=== PATIENT | female | born 1935 | race Caucasian/White ===

== ENCOUNTER 2021-08-16 23:00 | Inpatient (IN) | payer MEDICARE ==
[2021-08-16] MEDS ORDERED: Acetaminophen 650 MG Suppository ONE (23:33)
[2021-08-16 23:37] LABS: Hemoglobin 11.7 g/dL (12.0-16.0); Mean Corpuscular HGB CONC 33.5 g/dL (32.0-36.0); Mean Corpuscular Hemoglobin 31.7 pg (27.0-31.0); Mean Corpuscular Volume 94.5 fL (78.0-98.0); RBC Distribution Width 12.7 % (11.5-14.5); Red Blood Cell (RBC) Count 3.69 mill/uL (4.20-5.40); White Blood Cell (WBC) Count 3.8 thou/uL (4.8-10.8)
[2021-08-16 23:43] LABS: ALT (SGPT) 82 U/L (8-55); AST (SGOT) 101 U/L (5-34); Albumin 2.6 g/dL (3.4-4.8); Alkaline Phosphatase 141 U/L (40-110); Anion Gap 18 mmol/L (10-20); BUN (Urea Nitrogen) 46 mg/dL (9.8-20.1); Bilirubin, Total 1.2 mg/dL (0.2-1.2); Calc. Creatinine Clearance 0 mL/min (70-130); Calcium 8.8 mg/dL (7.8-10.44); Carbon Dioxide 22 mmol/L (23-31); Chloride 99 mmol/L (98-107); Globulin 3.4 g/dL (2.4-3.5); Glucose 100 mg/dL (83-110); Magnesium 2.1 mg/dL (1.6-2.6); Potassium 3.6 mmol/L (3.5-5.1); Sodium 135 mmol/L (136-145)
[2021-08-16] MEDS ORDERED: Aspirin 300 MG Suppository ONE (23:50)
[2021-08-16 23:57] LABS: #Lymphocytes 0.6 thou/uL (1.20-3.40); #Monocytes 0.1 thou/uL (0.11-0.59); #Neutrophils 3.1 thou/uL (1.40-6.50); %Eosinophils 0.2 % (0.0-10.0); %Lymphocytes 16.6 % (21.0-51.0); %Monocytes 2.3 % (0.0-10.0); %Neutrophils 80.9 % (42.0-75.0); Burr Cells SLIGHT = 2-5 cells (100X) (0-1/hpf); Elliptocytes MODERATE= 6-15 cells (100X) (0-1/hpf); Large Platelets SLIGHT; MDiff Complete? YES; Mean Platelet Volume 8.3 fL (7.4-10.4); Platelet Count 184 thou/uL (130-400); Platelet Morphology Comment Appears Adequate; Polychromasia SLIGHT = 2-3 cells (100X) (0-2/hpf); Tear Drops SLIGHT = 2-5 cells (100X) (0-1/hpf)
[2021-08-17 00:06] LABS: CKMB 4.9 ng/mL (0-6.6)
[2021-08-17] MEDS ORDERED: Aztreonam 1 GM in Sodium Chloride 0.9% 100 ML IVPB SCH (00:30)
[2021-08-17 00:35] LABS: SARS-CoV-2 NAA Rapid Test Not Detected (NotDetected)
[2021-08-17 00:49] LABS: Bilirubin Negative (Negative); Blood, Urine 3+ (Negative); Clarity Extra Turbid (Clear); Glucose, Urine (Dipstick) Normal (Negative); Ketone, Urine Negative (Negative); Leukocyte Negative Leu/uL (Negative); Nitrite Negative (Negative); Protein, Urine (Dipstick) 100 mg/dL (Neg-Trace); RBC/HPF None Seen HPF (0-3); Specific Gravity, Urine 1.019 (1.002-1.036); Squamous Epithelial 0-3 HPF (0-3); Urobilinogen Normal mg/dL (Less than 2); pH, Urine 5.5 (5.0-9.0)
[2021-08-17] MEDS ORDERED: Ondansetron ODT 4 MG TAB SL PRN (01:00)
[2021-08-17] MEDS ORDERED: Ondansetron PF 4 MG/2 ML Vial IVP PRN (01:00)
[2021-08-17 01:08] LABS: Bacteria/HPF 3+ HPF (None Seen)
[2021-08-17] MEDS ORDERED: Lorazepam 2 MG/ML VIAL ONE (01:44)
[2021-08-17] MEDS ORDERED: Bisacodyl 10 MG SUPP PR PRN (01:46)
[2021-08-17] MEDS ORDERED: Acetaminophen 325 MG TAB PO PRN (01:46)
[2021-08-17] MEDS ORDERED: Acetaminophen 650 MG Suppository PR PRN (01:46)
[2021-08-17] MEDS ORDERED: Vancomycin 1 GM/200 ML BAG ONE (01:55)
[2021-08-17] MEDS ORDERED: Heparin 25,000 units/D5W 500 ML IVPB SCH ×2 (02:00→15:30)
[2021-08-17] MEDS ORDERED: Heparin 10,000 UNITS/ 10 ML VIAL SLOW IVP SCH ×2 (02:00→15:30)
[2021-08-17] MEDS ORDERED: Furosemide 40 MG/4 ML VIAL SLOW IVP SCH (02:45)
[2021-08-17 03:40] LABS: Lactic Acid 5.8 mmol/L (0.5-2.2)
[2021-08-17 03:41] LABS: ALT (SGPT) 80 U/L (8-55); AST (SGOT) 104 U/L (5-34); Albumin 2.6 g/dL (3.4-4.8); Alkaline Phosphatase 111 U/L (40-110); Anion Gap 17 mmol/L (10-20); BUN (Urea Nitrogen) 48 mg/dL (9.8-20.1); Bilirubin, Total 1.1 mg/dL (0.2-1.2); Calc. Creatinine Clearance 43 mL/min (70-130); Carbon Dioxide 20 mmol/L (23-31); Chloride 101 mmol/L (98-107); Globulin 3.3 g/dL (2.4-3.5); Glucose 126 mg/dL (83-110); Potassium 3.2 mmol/L (3.5-5.1); Protein, Total 5.9 g/dL (5.8-8.1); Sodium 135 mmol/L (136-145)
[2021-08-17 03:43] VITALS: BMI 55.3
[2021-08-17 03:47] LABS: Band 57 % (5-11); Hemoglobin 10.9 g/dL (12.0-16.0); Lymphocytes 6 % (21-51); MDiff Complete? YES; Mean Corpuscular HGB CONC 32.5 g/dL (32.0-36.0); Mean Corpuscular Hemoglobin 30.9 pg (27.0-31.0); Mean Platelet Volume 8.6 fL (7.4-10.4); Monocytes 1 % (0-10); Neutrophil 36 % (42-75); Platelet Count 105 thou/uL (130-400); Platelet Morphology Comment Appears Decreased; RBC Distribution Width 12.7 % (11.5-14.5); RBC Morphology Normal; Red Blood Cell (RBC) Count 3.53 mill/uL (4.20-5.40); White Blood Cell (WBC) Count 8.8 thou/uL (4.8-10.8)
[2021-08-17 03:48] LABS: Troponin I 6.373 ng/mL (< 0.028)
[2021-08-17] MEDS: Sodium Chloride 0.9% 1,000 ML IV SCH ×2 (04:23→05:10)
[2021-08-17] MEDS ORDERED: Vancomycin 1 GM in Premix Bag 1 BAG IVPB SCH (04:30)
[2021-08-17] MEDS ORDERED: Cefepime 2 GM in Sodium Chloride 0.9% 100 ML IVPB SCH (05:00)
[2021-08-17] MEDS ORDERED: Milrinone 20 MG in Sodium Chloride 0.9% 100 ML IVPB SCH ×2 (05:30→09:00)
[2021-08-17] MEDS ORDERED: MILRINONE IVPB SCH (05:30)
[2021-08-17] MEDS ORDERED: DEXTROSE IVPB SCH (05:30)
[2021-08-17 05:40] LABS: Phosphorus 2.4 mg/dL (2.3-4.7)
[2021-08-17 05:45] LABS: Troponin I 7.584 ng/mL (< 0.028)
[2021-08-17] MEDS ORDERED: metroNIDAZOLE 500 MG in Premix Bag 1 BAG IVPB SCH (06:00)
[2021-08-17] MEDS ORDERED: DOBUTamine 500 mg/250 ml 250 ML IVPB SCH (09:00)
[2021-08-17] MEDS ORDERED: Famotidine/PF 20 mg/2ml Vial SLOW IVP SCH (09:00)
[2021-08-17] MEDS ORDERED: Potassium Chloride 40 MEQ in Premix Bag 1 BAG IVPB SCH (11:30)
[2021-08-17] MEDS ORDERED: DOPamine 400 MG/D5W 250 ML 250 ML ONE (12:50)
[2021-08-17] MEDS ORDERED: Sodium Chloride 0.9% 500 ML IV SCH (13:00)
[2021-08-17] MEDS ORDERED: Albumin 25% 100 ML ONE (13:00)
[2021-08-17] MEDS ORDERED: DOPamine 400 MG/D5W 250 ML 250 ML IVPB SCH (13:15)
[2021-08-17 13:21] LABS: PTT 193.4 sec (22.9-36.1)
[2021-08-17] MEDS ORDERED: Lidocaine 1% (PF) 30 ML VIAL ONE (14:00)
[2021-08-17] MEDS ORDERED: Norepinephrine 8 MG/0.9% NS 250 ML ONE ×2 (14:09→14:31)
[2021-08-17 14:10] LABS: Lactic Acid 4.4 mmol/L (0.5-2.2)
[2021-08-17 14:12] LABS: Anion Gap 17 mmol/L (10-20); BUN (Urea Nitrogen) 58 mg/dL (9.8-20.1); Calc. Creatinine Clearance 40 mL/min (70-130); Calcium 8.5 mg/dL (7.8-10.44); Carbon Dioxide 20 mmol/L (23-31); Chloride 101 mmol/L (98-107); Glucose 194 mg/dL (83-110); Potassium 3.8 mmol/L (3.5-5.1); Sodium 134 mmol/L (136-145)
[2021-08-17] MEDS ORDERED: Albumin 25% 25 GM/100 ML BOT IVPB SCH ×3 (14:15→22:00)
[2021-08-17] MEDS ORDERED: Norepinephrine 8 MG/0.9% NS 250 ML IVPB SCH (14:15)
[2021-08-17 14:56] LABS: Actual Bicarbonate (HCO3a) 18.7 mEq/L (22-28); Base Excess (BEa) -7.4 mEq/L (-2.0 to +3.0); CO2 Tension 40.2 mmHg (35.0-45.0); Calcium, Ionized (arterial) 1.12 mmol/L (1.12-1.30); Carboxyhemoglobin (COHb) 0.3 gm% (0.0-3.0); Hemoglobin (Hb) 10.5 g/dL (12.0-16.0); O2 Tension (PaO2), arterial 273.9 mmHg (> 60.0); pH, Arterial 7.29 (7.35-7.45)
[2021-08-17 14:59] LABS: Puncture Site RRA
[2021-08-17] MEDS ORDERED: Fludrocortisone Acetate 0.1 MG TAB PO SCH (15:00)
[2021-08-17 18:06] LABS: Hemoglobin 9.8 g/dL (12.0-16.0); Platelet Count 93 thou/uL (130-400)
[2021-08-17 18:09] LABS: Anion Gap 19 mmol/L (10-20); BUN (Urea Nitrogen) 60 mg/dL (9.8-20.1); Calc. Creatinine Clearance 38 mL/min (70-130); Calcium 8.7 mg/dL (7.8-10.44); Carbon Dioxide 18 mmol/L (23-31); Chloride 102 mmol/L (98-107); Glucose 156 mg/dL (83-110); Potassium 3.7 mmol/L (3.5-5.1); Sodium 135 mmol/L (136-145)
[2021-08-17] MEDS: Hydrocortisone Sod Succ/PF 100 mg/2 ml Vial IVP SCH ×2 (18:15→20:29)
[2021-08-17] MEDS ORDERED: Potassium Chloride 20 MEQ TAB PO SCH (20:00)
[2021-08-17] MEDS ORDERED: Apixaban 5 MG TAB PO SCH (21:00)
[2021-08-17] MEDS ORDERED: Vancomycin HCl 1 GM in Sodium Chloride 0.9% 250 ML 250 ML IVPB SCH (21:00)
[2021-08-17] MEDS ORDERED: Apixaban 2.5 MG TAB PO SCH (21:00)
[2021-08-17] MEDS ORDERED: Sodium Bicarbonate 150 MEQ in Dextrose 5% in Water 500 ML IV SCH (21:15)
[2021-08-17] MEDS ORDERED: Magnesium 5 GM/10 ML Abboject SYRINGE ONE (23:14)
[2021-08-18 01:13] VITALS: TEMP 97.7
[2021-08-18] MEDS ORDERED: Fludrocortisone Acetate 0.1 MG TAB PO SCH (09:00)
== END 2021-08-17 23:23 | disposition expired ==
LOC: ERS 23:00 → IMCU/EMU 08-17 00:32 → CCU 08-17 14:49
PROVIDERS: ADMIT Student in an Organized Health Care Education/Training Program; ATTEND Student in an Organized Health Care Education/Training Program
PROC: 3E033XZ Introduction of Vasopressor into Peripheral Vein, Percutaneous Approach (ICD-10-PCS; principal; 2021-08-17)
PROC: 06HY33Z Insertion of Infusion Device into Lower Vein, Percutaneous Approach (ICD-10-PCS; 2021-08-17)
PROC: 0JPT3XZ Removal of Tunneled Vascular Access Device from Trunk Subcutaneous Tissue and Fascia, Percutaneous Approach (ICD-10-PCS; 2021-08-17)
DX: T80.211A Bloodstream infection due to central venous catheter, initial encounter (principal); A41.50 Gram-negative sepsis, unspecified; I21.A1 Myocardial infarction type 2; J69.0 Pneumonitis due to inhalation of food and vomit; I50.33 Acute on chronic diastolic (congestive) heart failure; J96.01 Acute respiratory failure with hypoxia; R65.21 Severe sepsis with septic shock; G93.41 Metabolic encephalopathy; I13.0 Hypertensive heart and chronic kidney disease with heart failure and stage 1 through stage 4 chronic kidney disease, or unspecified chronic kidney disease; E87.2 Acidosis; N39.0 Urinary tract infection, site not specified; N17.9 Acute kidney failure, unspecified; Z68.43 Body mass index [BMI] 50.0-59.9, adult; I47.2 Ventricular tachycardia; Z66 Do not resuscitate; Z20.822 Contact with and (suspected) exposure to COVID-19; E78.5 Hyperlipidemia, unspecified; I48.0 Paroxysmal atrial fibrillation; K21.9 Gastro-esophageal reflux disease without esophagitis; N18.30 Chronic kidney disease, stage 3 unspecified; G89.29 Other chronic pain; D63.1 Anemia in chronic kidney disease; R74.01 Elevation of levels of liver transaminase levels; I25.10 Atherosclerotic heart disease of native coronary artery without angina pectoris; R57.0 Cardiogenic shock; I50.813 Acute on chronic right heart failure; E66.01 Morbid (severe) obesity due to excess calories; Y83.8 Other surgical procedures as the cause of abnormal reaction of the patient, or of later complication, without mention of misadventure at the time of the procedure; J44.9 Chronic obstructive pulmonary disease, unspecified; Z88.0 Allergy status to penicillin; I49.01 Ventricular fibrillation; Z86.718 Personal history of other venous thrombosis and embolism; Z79.01 Long term (current) use of anticoagulants; Z86.711 Personal history of pulmonary embolism; Z99.89 Dependence on other enabling machines and devices; Z88.2 Allergy status to sulfonamides; Z79.899 Other long term (current) drug therapy; Z90.49 Acquired absence of other specified parts of digestive tract; Z90.710 Acquired absence of both cervix and uterus; Z98.890 Other specified postprocedural states; Z82.49 Family history of ischemic heart disease and other diseases of the circulatory system; Z83.3 Family history of diabetes mellitus; I25.2 Old myocardial infarction; Z99.81 Dependence on supplemental oxygen
CPT/HCPCS: 0240U; 36415; 36600; 71045; 74176; 80053; 81003; 81015; 82553; 82805; 83605; 83630; 83690; 83735; 83880; 84100; 84145; 84484; 85025; 85730; 87040; 87045; 87046; 87071; 87077; 87081; 87086; 87149; 87186; 87324; 87427; 87449; 93005; 93010; 94660; J0692; J1250; J1265; J1644; J1720; J1940; J2001; J2060; J2260; J3370; J3475; J3480; J3490; J7050; J7070; P9047; S0028